=== PATIENT | female | born 1945 | race Caucasian/White ===

== ENCOUNTER → 2018-01-12 | Outpatient (CLI) | payer BC ==
[2018-01-12 14:22] LABS: HEMOGLOBIN 13.5 g/dL (12.5-16.0); RED BLOOD COUNT 4.51 M/mm3 (4.10-5.30); RED CELL DISTRIBUTION WIDTH 14.1 % (11.5-14.5); WHITE BLOOD COUNT 6.2 K/mm3 (4.8-10.8)
[2018-01-12 14:36] LABS: BUN/CREATININE RATIO 17.2 (6.0-26.0); CALCIUM 9.5 mg/dL (8.4-10.2); POTASSIUM 3.8 mmol/L (3.6-5.0); TOTAL BILIRUBIN 0.4 mg/dL (0.2-1.3); TOTAL PROTEIN 7.4 g/dL (6.3-8.2)
== END ==
LOC: LAB 14:05
PROVIDERS: Family Medicine
DX: Z00.00 Encounter for general adult medical examination without abnormal findings (principal); M81.0 Age-related osteoporosis without current pathological fracture; E03.9 Hypothyroidism, unspecified

== ENCOUNTER → 2018-06-18 | Outpatient (CLI) | payer BC ==
[2018-06-18 14:09] LABS: URINE COLOR YELLOW
[2018-06-18 14:10] LABS: URINE APPEARANCE CLEAR; URINE BILIRUBIN NEGATIVE (NEGATIVE); URINE BLOOD NEGATIVE (NEGATIVE); URINE GLUCOSE NEGATIVE (NEGATIVE); URINE KETONE NEGATIVE (NEGATIVE); URINE LEUKOCYTE ESTERASE TRACE (NEGATIVE); URINE NITRATE NEGATIVE (NEGATIVE); URINE PROTEIN(semi-quant) TRACE mg/dL (NEGATIVE); URINE UROBILINOGEN NORMAL (NORMAL)
== END ==
LOC: LAB 12:48
PROVIDERS: Family Medicine
DX: N39.0 Urinary tract infection, site not specified (principal)

== ENCOUNTER → 2020-05-22 | Outpatient (CLI) | payer BC ==
[2020-05-22 08:41] LABS: EOS # 0.2 (0.04-0.40); EOS % 4.6 % (1.0-5.0); HEMATOCRIT 37.9 % (37.0-47.0); HEMOGLOBIN 12.7 g/dL (12.5-16.0); LYMPH# 1.6 (1.50-4.00); MEAN CELL VOLUME 88 fl (78-100); MEAN CORPUSCULAR HEMOGLOBIN 30 pg (27-31); MEAN CORPUSCULAR HGB CONC 34 g/dL (33-37); MEAN PLATELET VOLUME 9.3 fl (7.4-10.4); MONO # 0.4 (0.20-0.80); NEU # 2.7 (1.40-6.50); PLATELET COUNT 240 K/mm3 (130-400); RED BLOOD COUNT 4.31 M/mm3 (4.10-5.30); RED CELL DISTRIBUTION WIDTH 13.5 % (11.5-14.5)
[2020-05-22 08:56] LABS: ALBUMIN 3.9 g/dL (3.4-4.8)
[2020-05-22 08:57] LABS: CALCIUM 8.9 mg/dL (8.3-10.5)
[2020-05-22 09:00] LABS: TOTAL BILIRUBIN 0.5 mg/dL (0.2-1.2)
== END ==
LOC: RAD 08:24
PROVIDERS: Physician Assistant
DX: Z00.00 Encounter for general adult medical examination without abnormal findings (principal); M16.11 Unilateral primary osteoarthritis, right hip; M16.12 Unilateral primary osteoarthritis, left hip; E03.9 Hypothyroidism, unspecified; J30.1 Allergic rhinitis due to pollen; I10 Essential (primary) hypertension; M81.0 Age-related osteoporosis without current pathological fracture; K90.9 Intestinal malabsorption, unspecified

== ENCOUNTER 2020-06-17 10:00 | Emergency (ER) | payer BC ==
[~2020-06-17] VITALS: Ht 162.6 cm; Wt 63.8 kg
[2020-06-17] MEDS ORDERED: LISINOPRIL10 MG PO (10:39)
[2020-06-17] MEDS ORDERED: METOPROLOL SUCC25 M1 PO (10:40)
[2020-06-17] MEDS ORDERED: HYDROCHLOROTH12.5 M1 PO (10:40)
[2020-06-17] MEDS ORDERED: FLUTICASON0.05 MG/AC NS (10:40)
[2020-06-17] MEDS ORDERED: LEVOTHYROXINE0.05 MG PO (10:40)
[2020-06-17 11:22] LABS: POTASSIUM 3.7 mmol/L (3.5-5.1); SODIUM 138 mmol/L (136-145)
[2020-06-17 11:23] LABS: CALCIUM 8.8 mg/dL (8.3-10.5)
[2020-06-17 11:24] LABS: GLUCOSE 97 mg/dL (65-105)
[2020-06-17 11:25] LABS: CARBON DIOXIDE 25 mmol/L (23-31)
[2020-06-17 11:39] LABS: TROPONIN-I < 0.03 ng/mL (<0.030)
[2020-06-17 12:18] VITALS: BP 170/84
== END 2020-06-17 12:18 | disposition home or self-care (01) ==
LOC: ED 10:00
PROVIDERS: Family Medicine
DX: I10 Essential (primary) hypertension (principal)

== ENCOUNTER 2020-09-06 10:28 | Emergency (ER) | payer BC ==
[~2020-09-06] VITALS: Ht 162.6 cm; Wt 63.6 kg
[~2020-09-06 10:28] MED LIST: FLUTICASON0.05 MG/AC NS; HYDROCHLOROTH12.5 M1 PO; LEVOTHYROXINE0.05 MG PO; LISINOPRIL40 MG PO; METOPROLOL SUCC25 M1 PO
[2020-09-06] MEDS ORDERED: RHINOCORT ALL8.43 ML NS (10:48)
[2020-09-06] MEDS ORDERED: ZYRTEC10 M3 PO (10:49)
[2020-09-06] MEDS ORDERED: HYDROCHLOROTH12.5 M1 PO (10:49)
[2020-09-06] MEDS ORDERED: VITAMIN D325 MC1 PO (10:50)
[2020-09-06] MEDS ORDERED: PROBIOTIC1 EAC1 PO (10:50)
[2020-09-06] MEDS ORDERED: VITAMIN C500 M6 (10:51)
[2020-09-06] MEDS ORDERED: VITAMIN E200 UNI2 (10:51)
[2020-09-06 12:35] VITALS: BP 142/68
== END 2020-09-06 12:49 | disposition home or self-care (01) ==
LOC: ED 10:28
DX: I10 Essential (primary) hypertension (principal); E03.9 Hypothyroidism, unspecified; Z88.8 Allergy status to other drugs, medicaments and biological substances; Z79.890 Hormone replacement therapy; Z79.51 Long term (current) use of inhaled steroids

== ENCOUNTER → 2020-09-15 | Outpatient (CLI) | payer BC ==
[2020-09-06 12:35] VITALS: BP 142/68
[~2020-09-15] MED LIST changes: +PROBIOTIC1 EAC1 PO; +RHINOCORT ALL8.43 ML NS; +VITAMIN C500 M6; +VITAMIN D325 MC1 PO; +VITAMIN E200 UNI2; +ZYRTEC10 M3 PO
[2020-09-15 14:06] LABS: POTASSIUM 3.8 mmol/L (3.5-5.1)
[2020-09-15 14:07] LABS: CALCIUM 9.2 mg/dL (8.3-10.5)
== END ==
LOC: LAB 13:42
PROVIDERS: Physician Assistant
DX: I10 Essential (primary) hypertension (principal)

== ENCOUNTER → 2021-05-21 | Outpatient (CLI) | payer BC ==
[2021-05-21 12:41] LABS: BASO # 0.03 (0.02-0.10); EOS # 0.19 (0.04-0.40); EOS % 2.7 % (1.0-5.0); HEMATOCRIT 37.7 % (37.0-47.0); HEMOGLOBIN 12.5 g/dL (12.5-16.0); LYMPH# 1.95 (1.50-4.00); MEAN CELL VOLUME 90 fl (78-100); MEAN CORPUSCULAR HEMOGLOBIN 30 pg (27-31); MEAN CORPUSCULAR HGB CONC 33 g/dL (33-37); MEAN PLATELET VOLUME 10.1 fl (7.4-10.4); MONO # 0.62 (0.20-0.80); NEU # 4.14 (1.40-6.50); PLATELET COUNT 197 K/mm3 (130-400); RED BLOOD COUNT 4.17 M/mm3 (4.10-5.30); RED CELL DISTRIBUTION WIDTH 13.1 % (11.5-14.5); WHITE BLOOD COUNT 6.9 K/mm3 (4.8-10.8)
[2021-05-21 12:46] LABS: ALBUMIN 3.7 g/dL (3.4-4.8); POTASSIUM 3.9 mmol/L (3.5-5.1)
[2021-05-21 12:47] LABS: CALCIUM 9.5 mg/dL (8.3-10.5)
[2021-05-21 12:49] LABS: TOTAL PROTEIN 6.7 g/dL (6.2-8.1)
[2021-05-21 12:51] LABS: TOTAL BILIRUBIN 0.7 mg/dL (0.2-1.2)
== END ==
LOC: LAB 11:54
PROVIDERS: Family Medicine
DX: Z00.00 Encounter for general adult medical examination without abnormal findings (principal); E55.9 Vitamin D deficiency, unspecified; E03.4 Atrophy of thyroid (acquired); E78.5 Hyperlipidemia, unspecified

== ENCOUNTER 2021-11-06 19:08 | Emergency (ER) | payer BC ==
[~2021-11-06] VITALS: Ht 167.6 cm; Wt 63.8 kg
[2021-11-06] MEDS ORDERED: ATORVASTATIN CA20 MG PO (19:18)
[2021-11-06] MEDS ORDERED: LOSARTAN POTAS100 MG PO (19:19)
[2021-11-06] MEDS ORDERED: METOPROLOL SUC100 M1 PO (19:19)
[2021-11-06 19:43] LABS: BASO # 0.02 K/mm3 (0.02-0.10); EOS # 0.21 K/mm3 (0.04-0.40); EOS % 3.3 % (1.0-5.0); HEMATOCRIT 39.3 % (37.0-47.0); HEMOGLOBIN 13.2 g/dL (12.5-16.0); MEAN CELL VOLUME 89 fl (78-100); MEAN CORPUSCULAR HEMOGLOBIN 30 pg (27-31); MEAN CORPUSCULAR HGB CONC 34 g/dL (33-37); MEAN PLATELET VOLUME 9.6 fl (7.4-10.4); MONO # 0.76 K/mm3 (0.20-0.80); NEU # 3.79 K/mm3 (1.40-6.50); PLATELET COUNT 189 K/mm3 (130-400); RED BLOOD COUNT 4.41 M/mm3 (4.10-5.30); RED CELL DISTRIBUTION WIDTH 13.5 % (11.5-14.5); WHITE BLOOD COUNT 6.3 K/mm3 (4.8-10.8)
[2021-11-06 20:03] LABS: ALBUMIN 3.9 g/dL (3.4-4.8); SODIUM 139 mmol/L (136-145)
[2021-11-06 20:04] LABS: CALCIUM 9.2 mg/dL (8.3-10.5)
[2021-11-06 20:05] LABS: GLUCOSE 97 mg/dL (65-105)
[2021-11-06 20:06] LABS: TOTAL PROTEIN 6.8 g/dL (6.2-8.1)
[2021-11-06 20:07] LABS: CARBON DIOXIDE 23 mmol/L (23-31); TOTAL BILIRUBIN 0.4 mg/dL (0.2-1.2)
[2021-11-06 20:11] LABS: AST-SGOT 20 U/L (5-34)
[2021-11-06 20:12] LABS: ALT/SGPT 22 U/L (0-55)
[2021-11-06 20:23] LABS: TROPONIN-I < 0.030 ng/mL (<0.030)
[2021-11-06] MEDS ORDERED: PREDNISONE20 M1 PO (21:07)
[2021-11-06] MEDS ORDERED: MORGIDOX 1X100100 MG PO (21:07)
[2021-11-06 21:33] VITALS: BP 134/78
== END 2021-11-06 21:33 | disposition home or self-care (01) ==
LOC: ED 19:08
PROVIDERS: Nurse Practitioner
DX: J40 Bronchitis, not specified as acute or chronic (principal); Z79.51 Long term (current) use of inhaled steroids; Z20.822 Contact with and (suspected) exposure to COVID-19
CPT/HCPCS: J2930

== ENCOUNTER → 2022-02-02 | Outpatient (CLI) | payer BC ==
[~2022-02-02] MED LIST changes: +ATORVASTATIN CA20 MG PO; +LOSARTAN POTAS100 MG PO; +METOPROLOL SUC100 M1 PO; +MORGIDOX 1X100100 MG PO; +PREDNISONE20 M1 PO
== END ==
LOC: LAB 10:23
DX: Z20.822 Contact with and (suspected) exposure to COVID-19 (principal)

== ENCOUNTER → 2022-06-03 | Outpatient (CLI) | payer BC ==
[2022-06-03 12:16] LABS: BASO # 0.03 K/mm3 (0.02-0.10); EOS # 0.17 K/mm3 (0.04-0.40); EOS % 2.7 % (1.0-5.0); HEMATOCRIT 36.8 % (37.0-47.0); HEMOGLOBIN 12.6 g/dL (12.5-16.0); LYMPH# 2.09 K/mm3 (1.50-4.00); MEAN CELL VOLUME 89 fl (78-100); MEAN CORPUSCULAR HEMOGLOBIN 30 pg (27-31); MEAN CORPUSCULAR HGB CONC 34 g/dL (33-37); MEAN PLATELET VOLUME 9.5 fl (7.4-10.4); MONO # 0.49 K/mm3 (0.20-0.80); NEU # 3.61 K/mm3 (1.40-6.50); PLATELET COUNT 223 K/mm3 (130-400); RED BLOOD COUNT 4.15 M/mm3 (4.10-5.30); WHITE BLOOD COUNT 6.4 K/mm3 (4.8-10.8)
[2022-06-03 12:28] LABS: POTASSIUM 4.1 mmol/L (3.5-5.1)
[2022-06-03 12:29] LABS: CALCIUM 9.4 mg/dL (8.3-10.5)
[2022-06-03 12:30] LABS: TOTAL PROTEIN 6.9 g/dL (6.2-8.1)
[2022-06-03 12:32] LABS: TOTAL BILIRUBIN 0.9 mg/dL (0.2-1.2)
== END ==
LOC: LAB 12:02
PROVIDERS: Family Medicine
DX: Z00.00 Encounter for general adult medical examination without abnormal findings (principal); M81.0 Age-related osteoporosis without current pathological fracture; J30.1 Allergic rhinitis due to pollen; E03.4 Atrophy of thyroid (acquired); I10 Essential (primary) hypertension; K57.90 Diverticulosis of intestine, part unspecified, without perforation or abscess without bleeding; E78.5 Hyperlipidemia, unspecified

== ENCOUNTER → 2023-10-30 | Outpatient (CLI) | payer BC ==
[2023-10-30 18:23] LABS: ALBUMIN 3.6 g/dL (3.4-4.8)
[2023-10-30 18:24] LABS: CALCIUM 8.7 mg/dL (8.3-10.5)
[2023-10-30 18:25] LABS: TOTAL PROTEIN 6.4 g/dL (6.2-8.1)
[2023-10-30 18:27] LABS: TOTAL BILIRUBIN 0.5 mg/dL (0.2-1.2)
[2023-10-30 21:23] LABS: URINE APPEARANCE CLEAR (CLEAR); URINE BILIRUBIN NEGATIVE (NEGATIVE); URINE COLOR YELLOW (YELLOW); URINE GLUCOSE NEGATIVE (NEGATIVE); URINE KETONE NEGATIVE (NEGATIVE); URINE PROTEIN(semi-quant) NEGATIVE (NEGATIVE)
[2023-10-30 21:24] LABS: URINE BLOOD NEGATIVE (NEGATIVE); URINE LEUKOCYTE ESTERASE NEGATIVE (NEGATIVE); URINE NITRATE NEGATIVE (NEGATIVE); URINE WBC 0-1 /hpf (0-3)
== END ==
LOC: LAB 17:50
PROVIDERS: Nurse Practitioner
DX: N39.0 Urinary tract infection, site not specified (principal); I10 Essential (primary) hypertension

== ENCOUNTER → 2023-11-18 | Outpatient (CLI) | payer BC ==
[2023-11-18 12:26] LABS: BASO # 0.03 K/mm3 (0.02-0.10); EOS # 0.19 K/mm3 (0.04-0.40); HEMATOCRIT 34.7 % (37.0-47.0); HEMOGLOBIN 11.4 g/dL (12.5-16.0); MEAN CELL VOLUME 90 fl (78-100); MEAN CORPUSCULAR HEMOGLOBIN 30 pg (27-31); MEAN CORPUSCULAR HGB CONC 33 g/dL (33-37); MEAN PLATELET VOLUME 9.5 fl (7.4-10.4); MONO # 0.51 K/mm3 (0.20-0.80); NEU # 3.85 K/mm3 (1.40-6.50); PLATELET COUNT 264 K/mm3 (130-400); RED BLOOD COUNT 3.87 M/mm3 (4.10-5.30); RED CELL DISTRIBUTION WIDTH 14.4 % (11.5-14.5); WHITE BLOOD COUNT 6.4 K/mm3 (4.8-10.8)
[2023-11-18 12:31] LABS: ALBUMIN 3.9 g/dL (3.4-4.8)
[2023-11-18 12:32] LABS: CALCIUM 9.5 mg/dL (8.3-10.5)
[2023-11-18 12:33] LABS: TOTAL PROTEIN 6.6 g/dL (6.2-8.1)
[2023-11-18 12:35] LABS: TOTAL BILIRUBIN 0.7 mg/dL (0.2-1.2)
== END ==
LOC: LAB 12:03
PROVIDERS: Family Medicine
DX: E03.4 Atrophy of thyroid (acquired) (principal); I10 Essential (primary) hypertension

== ENCOUNTER → 2023-11-22 | Outpatient (CLI) | payer BC | LOC: VAS 07:17 → RAD 07:17 | DX: I50.22 Chronic systolic (congestive) heart failure (principal); I34.0 Nonrheumatic mitral (valve) insufficiency; I35.1 Nonrheumatic aortic (valve) insufficiency ==

== ENCOUNTER → 2024-03-16 | Outpatient (CLI) | payer BC ==
[~2024-03-16] MED LIST changes: +HYDRALAZINE HYD50 MG PO; +PANTOPRAZOLE SO40 MG PO
[2024-03-16 14:12] LABS: BASO # 0.05 K/mm3 (0.02-0.10); EOS # 0.31 K/mm3 (0.04-0.40); EOS % 4.8 % (1.0-5.0); HEMATOCRIT 34.3 % (37.0-47.0); HEMOGLOBIN 11.4 g/dL (12.5-16.0); MEAN CELL VOLUME 90 fl (78-100); MEAN CORPUSCULAR HEMOGLOBIN 30 pg (27-31); MEAN CORPUSCULAR HGB CONC 33 g/dL (33-37); MEAN PLATELET VOLUME 8.9 fl (7.4-10.4); MONO # 0.57 K/mm3 (0.20-0.80); NEU # 3.82 K/mm3 (1.40-6.50); PLATELET COUNT 222 K/mm3 (130-400); RED BLOOD COUNT 3.82 M/mm3 (4.10-5.30); RED CELL DISTRIBUTION WIDTH 13.7 % (11.5-14.5); WHITE BLOOD COUNT 6.5 K/mm3 (4.8-10.8)
[2024-03-16 14:20] LABS: ALBUMIN 3.9 g/dL (3.4-4.8)
[2024-03-16 14:22] LABS: CALCIUM 9.4 mg/dL (8.3-10.5)
[2024-03-16 14:23] LABS: TOTAL PROTEIN 6.5 g/dL (6.2-8.1)
[2024-03-16 14:25] LABS: TOTAL BILIRUBIN 0.7 mg/dL (0.2-1.2)
== END ==
LOC: LAB 13:57
PROVIDERS: Family Medicine
DX: E03.4 Atrophy of thyroid (acquired) (principal); I10 Essential (primary) hypertension

== ENCOUNTER → 2024-03-23 | Outpatient (CLI) | payer BC ==
[2024-03-23 14:17] LABS: BASO # 0.04 K/mm3 (0.02-0.10); EOS # 0.29 K/mm3 (0.04-0.40); EOS % 4.5 % (1.0-5.0); HEMATOCRIT 32.8 % (37.0-47.0); HEMOGLOBIN 10.9 g/dL (12.5-16.0); LYMPH# 1.72 K/mm3 (1.50-4.00); MEAN CELL VOLUME 91 fl (78-100); MEAN CORPUSCULAR HEMOGLOBIN 30 pg (27-31); MEAN CORPUSCULAR HGB CONC 33 g/dL (33-37); MEAN PLATELET VOLUME 9.4 fl (7.4-10.4); MONO # 0.66 K/mm3 (0.20-0.80); NEU # 3.74 K/mm3 (1.40-6.50); PLATELET COUNT 227 K/mm3 (130-400); RED BLOOD COUNT 3.62 M/mm3 (4.10-5.30); RED CELL DISTRIBUTION WIDTH 13.8 % (11.5-14.5); WHITE BLOOD COUNT 6.5 K/mm3 (4.8-10.8)
[2024-03-23 14:21] LABS: ALBUMIN 3.8 g/dL (3.4-4.8)
[2024-03-23 14:22] LABS: CALCIUM 9.4 mg/dL (8.3-10.5)
[2024-03-23 14:24] LABS: TOTAL PROTEIN 6.2 g/dL (6.2-8.1)
[2024-03-23 14:26] LABS: TOTAL BILIRUBIN 0.6 mg/dL (0.2-1.2)
== END ==
LOC: LAB 13:57
PROVIDERS: Family Medicine
DX: Z00.00 Encounter for general adult medical examination without abnormal findings (principal); M81.0 Age-related osteoporosis without current pathological fracture; E78.5 Hyperlipidemia, unspecified; J30.1 Allergic rhinitis due to pollen; E03.4 Atrophy of thyroid (acquired); I10 Essential (primary) hypertension; K57.90 Diverticulosis of intestine, part unspecified, without perforation or abscess without bleeding; E55.9 Vitamin D deficiency, unspecified

== ENCOUNTER → 2024-06-07 | Outpatient (CLI) | payer BC ==
[2024-06-08 11:21] LABS: ALBUMIN 4.1 g/dL (3.4-4.8)
[2024-06-08 11:23] LABS: CALCIUM 9.6 mg/dL (8.3-10.5)
[2024-06-08 11:24] LABS: TOTAL PROTEIN 6.4 g/dL (6.2-8.1)
[2024-06-08 11:26] LABS: TOTAL BILIRUBIN 0.8 mg/dL (0.2-1.2)
[2024-06-08 11:30] LABS: MAGNESIUM 2.02 mg/dL (1.60-2.60)
== END ==
LOC: LAB 12:28
PROVIDERS: Family Medicine
DX: I10 Essential (primary) hypertension (principal); E56.9 Vitamin deficiency, unspecified

== ENCOUNTER → 2024-12-13 | Outpatient (CLI) | payer BC ==
[2024-12-13 12:30] LABS: CALCIUM 9.3 mg/dL (8.3-10.5)
[2024-12-13 12:32] LABS: TOTAL PROTEIN 7.2 g/dL (6.2-8.1)
[2024-12-13 12:33] LABS: TOTAL BILIRUBIN 0.8 mg/dL (0.2-1.2)
== END ==
LOC: LAB 12:03
PROVIDERS: Family Medicine
DX: I10 Essential (primary) hypertension (principal); E56.9 Vitamin deficiency, unspecified